=== PATIENT | female | born 1995 | race Caucasian/White ===

== ENCOUNTER 2025-03-03 08:31 | Outpatient (RCR) | payer BC, SELFPAY ==
[2025-03-03 09:11] LABS: Absolute Basophil Count 0.03 10^3/uL (0.0-0.2); Absolute Eosinophil Count 0.27 10^3/uL (0.0-0.7); Absolute Lymphocyte Count 0.99 10^3/uL (1.2-3.4); Absolute Monocyte Count 0.36 10^3/uL (0.1-0.8); Absolute Neutrophil Count 1.76 10^3/uL (1.2-6.7); Basophils % 0.9 %; Eosinophils % 7.9 %; HGB 12.1 g/dL (11.2-15.7); MCH 34.4 pg (27.0-33.0); MCHC 34.6 % (32.0-36.0); MCV 99 fL (80-95); MPV 8.9 fL (8.0-11.0); Monocytes % 10.6 %; Neutrophils % 51.6 %; Platelet Count 220 10^3/uL (130-400); RBC 3.52 10^6/uL (3.93-5.22); RDW 14.6 % (11.7-14.6); RDW-SD 53.1 fL; WBC 3.41 10^3/uL (4.4-10.8)
[2025-03-03] MEDS: Normal Saline Flush 10 ML SYR IVP (09:28)
[2025-03-03 09:43] LABS: ALT 27 U/L (14-59); AST 20 U/L (15-37); Albumin 3.9 g/dL (3.4-5.0); Alkaline Phosphatase 80 U/L (46-116); BUN 12 mg/dL (7-18); Bilirubin, Total 0.4 mg/dL (0.2-1.0); CREATININE 0.6 mg/dL (0.55-1.02); Chloride 106 mmol/L (98-107); Estimated GFR 126.09 (mL/min/1.73m2); Glucose 97 mg/dL (74-106); Potassium 4.3 mmol/L (3.5-5.1); Sodium 142 mmol/L (136-145); TSH 2.24 uIU/mL (0.36-3.74); Total Protein 6.9 g/dL (6.4-8.2)
[2025-03-03 09:53] LABS: T4 9.1 ug/dL (4.7-13.3)
== END 2025-03-27 23:59 | disposition home or self-care (01) ==
LOC: INF 08:31
PROVIDERS: PCP Registered Nurse; Visit Provider Internal Medicine Hematology & Oncology
DX: C50.919 Malignant neoplasm of unspecified site of unspecified female breast (principal); Z17.421 Hormone receptor negative with human epidermal growth factor receptor 2 negative status; Z45.2 Encounter for adjustment and management of vascular access device
CPT/HCPCS: 36591; 80053; 84436; 84443; 85025